=== PATIENT | female | born 1985 | race Caucasian/White ===

== ENCOUNTER 2020-09-20 19:29 | Emergency (ER) | payer BC ==
[2020-09-20 19:35] VITALS: RESP 18; TEMP 98.3
[2020-09-20] MEDS ORDERED: MORPHINE SULFATE 4 MG/ML SYRINGE IVP STA (20:05)
[2020-09-20] MEDS ORDERED: ONDANSETRON 4 MG/2 ML VIAL IVP STA (20:14)
[2020-09-20 20:20] LABS: Basophils % (A) 0 %; Eosinophils # (A) 0.4 k/uL (0-0.7); Eosinophils % (A) 2 %; HCT 37.8 % (34.0-46.0); HGB 13.1 gm/dL (11.4-16.0); Hyperchromasia Slight; Lymphocytes # (A) 1.2 k/uL (1.0-4.8); Lymphocytes % (A) 7 %; MCH 31.6 pg (25.0-35.0); MCHC 34.8 g/dL (31.0-37.0); MCV 90.9 fL (80.0-100.0); Mean Platelet Volume 6.9; Monocytes # (A) 0.4 k/uL (0-1.0); Monocytes % (A) 2 %; Neutrophils # (A) 15.4 k/uL (1.3-7.7); Neutrophils % (A) 88 %; Platelet Count 338 k/uL (150-450); RBC 4.16 m/uL (3.80-5.40); RDW 14.4 % (11.5-15.5); WBC 17.5 k/uL (3.8-10.6)
[2020-09-20 20:23] LABS: Appearance,Urine Cloudy (Clear); Bacteria,Urine Occasional /hpf; Bilirubin,Urine Negative (Negative); Blood,Urine Large (Negative); Color,Urine Yellow; Glucose,Urine (UA) Negative (Negative); Hyaline Casts,Urine 3 /lpf (0-2); Ketones,Urine Trace (Negative); Leukocyte Esterase,Urine Small (Negative); Mucus,Urine Occasional /hpf; Nitrite,Urine Negative (Negative); PH, Urine 5.5 (5.0-8.0); Protein,Urine Trace (Negative); RBC,Urine 2 /hpf (0-5); Specific Gravity,Urine 1.031 (1.001-1.035); Squamous Epithelial Cell,Urine 7 /hpf (0-4); Urobilinogen,Urine <2.0 mg/dL (<2.0); WBC,Urine 5 /hpf (0-5)
[2020-09-20 20:28] LABS: ALT 29 U/L (4-34); AST 28 U/L (14-36); African American GFR (CKD) >90 (>60 ml/min/1.73 sqM); Albumin 3.9 g/dL (3.5-5.0); Alkaline Phosphatase 56 U/L (38-126); Anion Gap 9 mmol/L; Blood Urea Nitrogen 10 mg/dL (7-17); Calcium 9.7 mg/dL (8.4-10.2); Carbon Dioxide 20 mmol/L (22-30); Chloride 104 mmol/L (98-107); Glucose 111 mg/dL (74-99); Non-African American GFR(CKD) >90 (>60 ml/min/1.73 sqM); Sodium 133 mmol/L (137-145); Total Bilirubin 0.6 mg/dL (0.2-1.3); Total Protein 6.7 g/dL (6.3-8.2)
[2020-09-20] MEDS ORDERED: fentaNYL (PF) 50 MCG/ML 2 ML AMP IVP STA ×2 (20:34→21:17)
[2020-09-20 20:36] LABS: INR 0.9 (<1.2); Partial Thromboplastin Time 20.5 sec (22.0-30.0); Prothrombin Time 9.5 sec (9.0-12.0)
[2020-09-20] MEDS ORDERED: SODIUM CHLORIDE 0.9% 1,000 ML IV ONE (20:50)
[2020-09-20] MEDS ORDERED: cefTRIAXone IN SWFI 1,000 MG/10 ML SYRINGE IVP STA (20:50)
--- NOTE | 2020-09-20 21:27 | ED ---
Female Urogenital HPI - General Chief complaint: Vaginal Bleeding Stated complaint: vag bleeding/abd pain (16 weeks prg) Time Seen by Provider: 09/20/20 19:36 Source: patient Mode of arrival: ambulatory Limitations: no limitations - History of Present Illness Initial comments: Patient is a 35-year-old female who is approximately 16 weeks who presents emergency Department with reported vaginal bleeding and cramping. Patient does follow with Dr. Lui. Reports that she just found out she is approximately 1.5 weeks ago. He did have a informal ultrasound in Dr. Lui's office. States that she does have a follow-up appointment on Thursday with him. At 11 AM this morning the patient started having some mild cramping and mild bleeding. Reports that it was brown in color. The cramping has remained constant, every 3 minutes approximately over the course of the day however appeared to get more intense. States that her bleeding remained minimal however due to the increasing pain she decided to come into the emergency room for evaluation. Denies any abnormal vaginal discharge. No fevers or chills. Denies any changes in her urination to include dysuria, hematuria or difficulty voiding. Denies any changes in her bowel movements. No lightheadedness or dizziness. No other alleviating, precipitating or modifying factors - Related Data Previous Rx's Medication Instructions Recorded Albuterol Inhaler (Mhu) [Ventolin 1 - 2 puff INHALATION Q6HR PRN #1 07/27/14 Hfa Inhaler (Mhu)] inhaler predniSONE 50 mg PO DAILY #5 tab 07/27/14 Cephalexin [Keflex] 500 mg PO Q12HR 1 Days #14 cap 09/20/20 Allergies Allergy/AdvReac Type Severity Reaction Status Date / Time Sulfa (Sulfonamide Allergy Itching Verified 09/20/20 19:35 Antibiotics) Review of Systems ROS Statement: Those systems with pertinent positive or pertinent negative responses have been documented in the HPI. ROS Other: All systems not noted in ROS Statement are negative. Past Medical History Past Medical History: No Reported History History of Any Multi-Drug Resistant Organisms: None Reported Past Surgical History: No Surgical Hx Reported Past Psychological History: No Psychological Hx Reported Smoking Status: Never smoker Past Alcohol Use History: None Reported Past Drug Use History: None Reported General Exam Limitations: no limitations Course Vital Signs 09/20/20 09/20/2009/20/21 19:30 21:47 21:50 Temperature 98.3 F Pulse Rate 85 94 Respiratory 18 18 Rate Blood Pressure 118/82 130/75 121/67 O2 Sat by Pulse 98 95 96 Oximetry 09/20/20 09/20/20 22:00 23:13 Temperature Pulse Rate 80 85 Respiratory 18 18 Rate Blood Pressure 121/67 126/74 O2 Sat by Pulse 99 98 Oximetry Medical Decision Making - Medical Decision Making Upon arrival patient was placed into room 26. A thorough history and physical exam is performed. IV is established. Patient does appear to have regular contraction-like pain every 3 minutes. Because of this we did give her 4 mg of morphine for pain control and a bedside ultrasound is performed by myself. Does demonstrates movement with a heart rate of approximately 178. I am able to perform a speculum exam which does demonstrate passage of mucoid material through an open cervix. Patient does not have any improvement in pain control with the morphine and therefore she is given a dose of fentanyl. Formal ultrasound is able to be completed. ultrasound is returned and demonstrates that the patient is approximately 20 weeks with a single live intrauterine . heart rate is elevated at 190. White blood cell count of 17.5. Urinalysis does demonstrate occasional bacteria with small leukocyte esterase. Patient was given a dose of antibiotics. Blood type is A-. I did repeat a bedside ultrasound which does demonstrate decreased movement with the fetus appearing to lie very low in the uterus. I did call discuss the case with Dr. Otero at [phone] notifying her that the patient does appear to be an inevitable . She agrees to admit the patient for pain control and to help facilitate delivery. I do attempt to put orders in on the patient remained call to the patient's room. Patient felt the urge to push and therefore went to the restroom. I do find the patient sitting on the toilet with the fetus in the bowl. Umbilical cord is attached and placenta is not delivered. Cord is clamped and cut. Patient was placed into the bed and placenta was delivered 10 minutes later. Speculum exam was performed with extraction of some clots. Bleeding is minimal and approximately 20 mL of bright red blood. Patient has immediate improvement in her pain. I did speak with Dr. Otero again at [phone] to inform her in the change of the patients status. She recommended that the patient remain on antibiotics. If she does have improvement in her pain and vital he appears to be stable that she can be discharged home. Patient does request to go home and states that she does not want to be hospitalized. She is watched for an additional hour. She has no increase in the amount of bleeding. Vitals remained stable. Patient is able to get up and ambulate without difficulty. Specimen is sent to pathology. She is to call Dr. Lui's office in the morning to notify them of her visit to the emergency department. She does have a follow-up appointment with him on Thursday. The patient has any new or worsening symptoms she should return to the emergency room. Patient agreed to this. Given written and verbal discharge instructions and discharged home in the care of a family member - Lab Data Result diagrams: 09/20/20 20:07 09/20/20 20:07 Lab Results 09/20/20 09/20/20 09/20/20 Range/Units 20:00 20:07 20:07 WBC 17.5 H (3.8-10.6) k/uL RBC 4.16 (3.80-5.40) m/uL Hgb 13.1 (11.4-16.0) gm/dL Hct 37.8 (34.0-46.0) % MCV 90.9 (80.0-100.0) fL MCH 31.6 (25.0-35.0) pg MCHC 34.8 (31.0-37.0) g/dL RDW 14.4 (11.5-15.5) % Plt Count 338 (150-450) k/uL MPV 6.9 Neutrophils % 88 % Lymphocytes % 7 % Monocytes % 2 % Eosinophils % 2 % Basophils % 0 % Neutrophils # 15.4 H (1.3-7.7) k/uL Lymphocytes # 1.2 (1.0-4.8) k/uL Monocytes # 0.4 (0-1.0) k/uL Eosinophils # 0.4 (0-0.7) k/uL Basophils # 0.0 (0-0.2) k/uL Hyperchromasia Slight PT 9.5 (9.0-12.0) sec INR 0.9 (<1.2) APTT 20.5 L (22.0-30.0) sec Sodium (137-145) mmol/L Potassium (3.5-5.1) mmol/L Chloride (98-107) mmol/L Carbon Dioxide (22-30) mmol/L Anion Gap mmol/L BUN (7-17) mg/dL Creatinine (0.52-1.04) mg/dL Est GFR (CKD-EPI)AfAm (>60 ml/min/1.73 sqM) Est GFR (CKD-EPI)NonAf (>60 ml/min/1.73 sqM) Glucose (74-99) mg/dL Calcium (8.4-10.2) mg/dL Total Bilirubin (0.2-1.3) mg/dL AST (14-36) U/L ALT (4-34) U/L Alkaline Phosphatase (38-126) U/L Total Protein (6.3-8.2) g/dL Albumin (3.5-5.0) g/dL Urine Color Urine Appearance (Clear) Urine pH (5.0-8.0) Ur Specific Bitely (1.001-1.035) Urine Protein (Negative) Urine Glucose (UA) (Negative) Urine Ketones (Negative) Urine Blood (Negative) Urine Nitrite (Negative) Urine Bilirubin (Negative) Urine Urobilinogen (<2.0) mg/dL Ur Leukocyte Esterase (Negative) Urine RBC (0-5) /hpf Urine WBC (0-5) /hpf Ur Squamous Epith Cells (0-4) /hpf Urine Bacteria (None) /hpf Hyaline Casts (0-2) /lpf Urine Mucus (None) /hpf Blood Type A Positive Blood Type Recheck No Previous Record Bld Type Recheck Status [facility] ONLY 09/20/20 09/20/20 Range/Units 20:07 20:07 WBC (3.8-10.6) k/uL RBC (3.80-5.40) m/uL Hgb (11.4-16.0) gm/dL Hct (34.0-46.0) % MCV (80.0-100.0) fL MCH (25.0-35.0) pg MCHC (31.0-37.0) g/dL RDW (11.5-15.5) % Plt Count (150-450) k/uL MPV Neutrophils % % Lymphocytes % % Monocytes % % Eosinophils % % Basophils % % Neutrophils # (1.3-7.7) k/uL Lymphocytes # (1.0-4.8) k/uL Monocytes # (0-1.0) k/uL Eosinophils # (0-0.7) k/uL Basophils # (0-0.2) k/uL Hyperchromasia PT (9.0-12.0) sec INR (<1.2) APTT (22.0-30.0) sec Sodium 133 L (137-145) mmol/L Potassium 4.0 (3.5-5.1) mmol/L Chloride 104 (98-107) mmol/L Carbon Dioxide 20 L (22-30) mmol/L Anion Gap 9 mmol/L BUN 10 (7-17) mg/dL Creatinine 0.55 (0.52-1.04) mg/dL Est GFR (CKD-EPI)AfAm >90 (>60 ml/min/1.73 sqM) Est GFR (CKD-EPI)NonAf >90 (>60 ml/min/1.73 sqM) Glucose 111 H (74-99) mg/dL Calcium 9.7 (8.4-10.2) mg/dL Total Bilirubin 0.6 (0.2-1.3) mg/dL AST 28 (14-36) U/L ALT 29 (4-34) U/L Alkaline Phosphatase 56 (38-126) U/L Total Protein 6.7 (6.3-8.2) g/dL Albumin 3.9 (3.5-5.0) g/dL Urine Color Yellow Urine Appearance Cloudy H (Clear) Urine pH 5.5 (5.0-8.0) Ur Specific Bitely 1.031 (1.001-1.035) Urine Protein Trace H (Negative) Urine Glucose (UA) Negative (Negative) Urine Ketones Trace H (Negative) Urine Blood Large H (Negative) Urine Nitrite Negative (Negative) Urine Bilirubin Negative (Negative) Urine Urobilinogen <2.0 (<2.0) mg/dL Ur Leukocyte Esterase Small H (Negative) Urine RBC 2 (0-5) /hpf Urine WBC 5 (0-5) /hpf Ur Squamous Epith Cells 7 H (0-4) /hpf Urine Bacteria Occasional H (None) /hpf Hyaline Casts 3 H (0-2) /lpf Urine Mucus Occasional H (None) /hpf Blood Type Blood Type Recheck Bld Type Recheck Status Disposition Clinical Impression: Complete Disposition: HOME SELF-CARE Condition: Stable Instructions (If sedation given, give patient instructions): Miscarriage (ED) Additional Instructions: Please call Dr. Lui's office tomorrow to notify him that you went to the emergency department. Follow-up at your scheduled appointment on Thursday. Return to the emergency room for any new or worsening symptoms Prescriptions: Cephalexin [Keflex] 500 mg PO Q12HR 1 Days #14 cap Is patient prescribed a controlled substance at d/c from ED?: No Referrals: Asad Millard MD [Primary Care Provider] - 1-2 days Johny Lui MD [STAFF PHYSICIAN] - 1-2 days Time of Disposition: 22:54 Decision to Admit Reason: Admit from EC Decision Date: 09/20/20 Decision Time: 21:27
--- NOTE | 2020-09-20 21:52 | US ---
EXAMINATION TYPE: US OB >= 14 wk fetus DATE OF EXAM: 09/20/2020 COMPARISON: None CLINICAL HISTORY: painSevere pain and bleeding. LMP unknown. Patient states she believes she is 16 we eks . . TECHNIQUE: Transabdominal (TA) GESTATIONAL AGE / DATING Physician Established: Not yet established. Dates by LMP: Unknown. Dates by First Scan: This is first scan. Dates by Current Scan: (20 weeks/ 0 days) EDC: 02/07/2021 SURVEY IUP: Single PLACENTA: Anterior PREVIA: No Previa MIRELLA: 12.39 cm Normal CERVICAL LENGTH (transabdominal: norm > 3.0cm): Bladder not well distended. Limited visibility. Cervi x measured at 2.93 cm, but not clearly visualized. CERVICAL LENGTH (transvaginal: norm> 2.5cm): Transvaginal exam not performed per Dr. Brooke. BIOMETRY PRESENTATION: Vertex LIE: Longitudinal BPD: 4.65 cm 20 weeks / 0 days HC: 17.87 cm 20 weeks / 2 days AC: 15.22 cm 20 weeks / 3 days FL: 3.20 cm 20 weeks / 0 days. Limited measurement. Fetus appears to be positioned low. Bladder not fully dis tended. ESTIMATED WEIGHT IN GRAMS: 339.73 grams ESTIMATED WEIGHT IN LBS/OZ: 0 lbs. 12 oz. WEIGHT PERCENTAGE BASED ON ESTABLISHED DATES: Unknown HC/AC: 1.17 FL/AC: 21.03 HEART RATE: 190 bpm RHYTHM: Heart rate measures high. IMPRESSION: Single live intrauterine with estimated gestational age of 20 weeks. heart rate of 190 bpm, elevated and nonspecific.
[2020-09-20 23:14] VITALS: BP 126/74; PULSE 85
== END 2020-09-20 23:21 | disposition home or self-care (01) ==
LOC: EC 19:29
DX: O03.9 Complete or unspecified spontaneous abortion without complication (principal); Z88.2 Allergy status to sulfonamides
CPT/HCPCS: 36415; 86900; 86901; 80053; 85025; 85610; 85730; 81001; 76805; 99284; 96374; 96375 ×3; 96376; 96361; J2270; J2405; J0696; J3010

== ENCOUNTER 2022-02-11 10:02 | Outpatient (CLI) | payer BC ==
[2022-02-11 15:09] VITALS: BP 143/81; PULSE 133; RESP 20; TEMP 98
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
== END 2022-02-11 12:05 | disposition home or self-care (01) ==
LOC: FBPOP 10:02
PROVIDERS: ATTEND Obstetrics & Gynecology
DX: O9A.212 Injury, poisoning and certain other consequences of external causes complicating pregnancy, second trimester (principal); S80.212A Abrasion, left knee, initial encounter; Z3A.27 27 weeks gestation of pregnancy; Z88.2 Allergy status to sulfonamides; Z04.3 Encounter for examination and observation following other accident
CPT/HCPCS: 99213

== ENCOUNTER 2022-04-28 13:56 | Outpatient (CLI) | payer BC ==
[2022-04-28 14:23] VITALS: BP 129/80; PULSE 125; RESP 16; TEMP 97.8
[2022-04-28 14:58] LABS: Creatinine,Urine Random 126.9 mg/dL; Protein/Creatinine Ratio,Urine 0.11
[2022-04-28 15:06] LABS: Basophils % (A) 0 %; Eosinophils # (A) 0.1 k/uL (0-0.7); Eosinophils % (A) 1 %; HCT 34.6 % (34.0-46.0); HGB 11.9 gm/dL (11.4-16.0); Lymphocytes # (A) 1.4 k/uL (1.0-4.8); Lymphocytes % (A) 11 %; MCH 29.7 pg (25.0-35.0); MCHC 34.4 g/dL (31.0-37.0); MCV 86.4 fL (80.0-100.0); Mean Platelet Volume 8.1; Monocytes # (A) 0.4 k/uL (0-1.0); Monocytes % (A) 4 %; Neutrophils # (A) 9.9 k/uL (1.3-7.7); Neutrophils % (A) 82 %; Platelet Count 326 k/uL (150-450); Poikilocytosis Slight; RBC 4.01 m/uL (3.80-5.40); RDW 15.8 % (11.5-15.5); WBC 12.1 k/uL (3.8-10.6)
[2022-04-28 15:15] LABS: ALT 15 U/L (4-34); AST 21 U/L (14-36); African American GFR (CKD) >90 (>60 ml/min/1.73 sqM); Blood Urea Nitrogen 11 mg/dL (7-17); LDH 367 U/L (313-618); Non-African American GFR(CKD) >90 (>60 ml/min/1.73 sqM); Uric Acid 3.4 mg/dL (3.7-7.4)
--- NOTE | 2022-04-30 06:52 | P.MSEPDOC ---
Presenting Problems - Arrival Data Date of Arrival on Unit: 04/28/22 Time of Arrival on Unit: 13:56 Mode of Transport: Ambulatory - Complaint OB-Reason for Admission/Chief Complaint: PIH Medical History - Information : 2 Para: 0 Term: 0 : 0 Abortions: Spontaneous or Elective: 1 Number of Living Children: 0 - Gestational Age Gestational Age by CHESTER (wks/days): 38 Weeks and 2 Days Review of Systems - Review of Systems Constitutional: No problems Breast: No problems ENT: No problems Cardiovascular: No problems Respiratory: No problems Gastrointestinal: No problems Genitourinary: No problems Musculoskeletal: No problems Neurological: No problems Skin: No problems Vital Signs - Temperature Temperature: 97.8 F Temperature Source: Temporal Artery Scan - Pulse Right Sitting Pulse Rate: 125 Pulse Assessment Method: Pulse Oximetry - Respirations Respiratory Rate: 16 Oxygen Delivery Method: Room Air O2 Sat by Pulse Oximetry: 96 - Blood Pressure Right Arm Blood Pressure: 129/80 Blood Pressure Mean: 96 Blood Pressure Source: Automatic Cuff Medical Screen Scoring - Assessment - Baby A Baseline FHR: 135 Heart Rate - NICHD Category: Category I (Normal) NST: Reactive Physician Notification - Physician Notified Physician Notified Date: 04/28/22 Physician Notified Time: 15:11 Physician: Johny Lui New Order Received: Yes (d/c home) Maternal Triage Index - Non-Urgent/Priority 4 Non-Urgent Priority 4: Yes Criteria Met for Priority 4: bps wnl, reactive nst, all labs wnl Disposition - Disposition OB Disposition: Discharge to home Discharge Date: 04/28/22 Discharge Time: 15:22 I agree with the RN Medical Screening Exam: Yes Case reviewed; plan agreed upon as documented in EMR&OBIX.: Yes Diagnosis: GESTATIONAL HTN W/O SIGNIFICANT PROTEINURIA, THIRD TRIMESTER
== END 2022-04-28 15:22 | disposition home or self-care (01) ==
LOC: FBPOP 13:56
PROVIDERS: ATTEND Obstetrics & Gynecology
DX: O13.3 Gestational [pregnancy-induced] hypertension without significant proteinuria, third trimester (principal); Z3A.38 38 weeks gestation of pregnancy
CPT/HCPCS: 59025; 82565; 82570; 83615; 84156; 84450; 84460; 84520; 84550; 85025

== ENCOUNTER 2022-05-03 10:05 | Inpatient (IN) | payer BC ==
[2022-05-03] MEDS ORDERED: METHYLERGONOVINE 0.2 MG/ML 1 ML AMP IM PRN (11:32)
[2022-05-03] MEDS ORDERED: OXYTOCIN 10 UNIT/ML 1 ML VIAL IM PRN (11:32)
[2022-05-03] MEDS ORDERED: LIDOCAINE 0.5% (PF) 5 MG/ML (50 ML SDV) SQ PRN (11:32)
[2022-05-03] MEDS ORDERED: TERBUTALINE 1 MG/ML VIAL SQ PRN (11:32)
[2022-05-03] MEDS ORDERED: CARBOPROST TROMETHAMINE 250 MCG/ML 1 ML AMP IM PRN (11:32)
[2022-05-03] MEDS ORDERED: OXYTOCIN 30 UNITS/500 ML NS 30 UNIT in SALINE 1 500ML.BAG IV SCH (11:45)
[2022-05-03 12:36] LABS: Basophils # (A) 0.1 k/uL (0-0.2); Basophils % (A) 1 %; Eosinophils # (A) 0.1 k/uL (0-0.7); Eosinophils % (A) 1 %; HCT 42.2 % (34.0-46.0); HGB 12.8 gm/dL (11.4-16.0); Hypochromasia Marked; Lymphocytes # (A) 1.4 k/uL (1.0-4.8); Lymphocytes % (A) 10 %; MCH 28.8 pg (25.0-35.0); MCHC 30.4 g/dL (31.0-37.0); Mean Platelet Volume 8.1; Monocytes # (A) 0.4 k/uL (0-1.0); Monocytes % (A) 3 %; Neutrophils # (A) 11.9 k/uL (1.3-7.7); Neutrophils % (A) 85 %; Platelet Count 308 k/uL (150-450); Poikilocytosis Slight; RBC 4.45 m/uL (3.80-5.40); RDW 15.3 % (11.5-15.5)
[2022-05-03 12:43] LABS: MCV 94.9 fL (80.0-100.0)
[2022-05-03] MEDS: LACTATED RINGERS 1,000 ML IV SCH ×3 (13:02→18:15)
[2022-05-03] MEDS ORDERED: ROPIVACAINE 5 MG/ML 20 ML AMPULE ONE (16:01)
[2022-05-03] MEDS ORDERED: SODIUM CHLORIDE 0.9% 100 ML BAG ONE (16:01)
[2022-05-03] MEDS ORDERED: fentaNYL (PF) 50 MCG/ML 5 ML AMP ONE (16:01)
--- NOTE | 2022-05-03 17:31 | P.HPOB ---
History of Present Illness H&P Date: 05/03/22 Chief Complaint: labor, SROM 37 year old presents at 39 weeks with spontaneous rupture of membranes at 7 am and stefanie every 2-4 minutes. Her cervix is 2/80/-2. heart tones 135 with moderate variability and reactive. Review of Systems All systems: negative Constitutional: Denies chills, Denies fever Eyes: denies blurred vision, denies pain Ears, nose, mouth and throat: Denies headache, Denies sore throat Cardiovascular: Denies chest pain, Denies shortness of breath Respiratory: Denies cough Gastrointestinal: Denies abdominal pain, Denies diarrhea, Denies nausea, Denies vomiting Genitourinary: Denies dysuria, Denies hematuria Musculoskeletal: Denies myalgias Integumentary: Denies pruritus, Denies rash Neurological: Denies numbness, Denies weakness Psychiatric: Denies anxiety, Denies depression Endocrine: Denies fatigue, Denies weight change Past Medical History Past Medical History: No Reported History Additional Past Medical History / Comment(s): labs: A+, abs neg, Rub Imm, RPR Nr, Hep B neg, HIV NR, GBS neg. normal 1hr GTT. History of Any Multi-Drug Resistant Organisms: None Reported Past Surgical History: No Surgical Hx Reported Past Anesthesia/Blood Transfusion Reactions: No Reported Reaction Past Psychological History: No Psychological Hx Reported Smoking Status: Never smoker Past Alcohol Use History: None Reported Past Drug Use History: None Reported - Past Family History Mother Family Medical History: No Reported History Medications and Allergies Home Medications Medication Instructions Recorded Confirmed Type Aspirin 81 mg PO DAILY 02/11/22 05/03/22 History Vit No.179/Iron/Folic 1 each PO DAILY 02/11/22 05/03/22 History [ Tablet] Allergies Allergy/AdvReac Type Severity Reaction Status Date / Time Sulfa (Sulfonamide Allergy Itching Verified 05/03/22 10:13 Antibiotics) Exam Osteopathic Statement: *. No significant issues noted on an osteopathic structural exam other than those noted in the History and Physical/Consult. Vital Signs Temp Pulse Resp BP Pulse Ox 05/03/22 11:32 98.1 F 120 H 16 124/68 99 Intake and Output 05/03/22 05/03/22 05/03/22 06:59 14:59 22:59 Other: # Voids 1 Weight 83.007 kg Heart: Regular rate and rhythm Lungs: Clear to auscultation bilaterally Abdomen: Soft, nontender Extremities: Negative Homans sign Results Result Diagrams: 05/03/22 11:30 Abnormal Lab Results - Last 24 Hours (Table) 05/03/22 Range/Units 11:30 WBC 14.0 H (3.8-10.6) k/uL MCHC 30.4 L (31.0-37.0) g/dL Neutrophils # 11.9 H (1.3-7.7) k/uL Assessment and Plan (1) Spontaneous rupture of membranes Current Visit: Yes Status: Acute Code(s): IUE0013 - SNOMED Code(s): 639850617 (2) Normal labor Current Visit: Yes Status: Acute Code(s): O80 - ENCOUNTER FOR FULL-TERM UNCOMPLICATED DELIVERY; Z37.9 - OUTCOME OF DELIVERY, UNSPECIFIED SNOMED Code(s): 91825310 Plan: 1. Admit to family place 2. Expectant management with Pitocin augmentation if necessary 3. Anticipate normal vaginal delivery
[2022-05-04] MEDS ORDERED: CITRIC ACID-SODIUM CITRATE 15 ML CUP PO ONE (01:19)
[2022-05-04] MEDS ORDERED: ONDANSETRON 4 MG/2 ML VIAL ONE (01:42)
[2022-05-04] MEDS ORDERED: OXYTOCIN 30 UNITS/500 ML NS BAG IV ONE (01:42)
[2022-05-04] MEDS ORDERED: SODIUM CHLORIDE 0.9% 100 ML BAG ONE (01:42)
[2022-05-04] MEDS ORDERED: ceFAZolin 1,000 MG VIAL ONE (01:42)
[2022-05-04] MEDS ORDERED: MORPHINE SULFATE (PF) 0.3 MG/0.3 ML SYR ONE (01:42)
--- NOTE | 2022-05-04 02:32 | P.OP ---
Date of Procedure: 05/04/22 Preoperative Diagnosis: 1. at 39 weeks 2. AMA 3. arrest of descent 4. category 2 heart tones Postoperative Diagnosis: 1. at 39 weeks 2. AMA 3. arrest of descent 4. category 2 heart tones 5. nuchal cord x2 Procedure(s) Performed: Primary low transverse Anesthesia: epidural Surgeon: Alejandrina Mayorga Computer Support Technician #1: Jessica Razo Estimated Blood Loss (ml): 730 IV fluids (ml): 600 Urine output (ml): 100 Pathology: none sent Condition: stable Disposition: floor Indications for Procedure: 37-year-old presented at 39 weeks with spontaneous rupture membranes and stefanie every 4 minutes. Her cervix was 2 cm dilated, 80% effaced, -2 station. heart tones are 135 with moderate variability and reactive. Her water broke at 7:00 in the morning on 05/03/2022. She presented soon thereafter. After her IV was started her contractions spaced out and she did not make any more cervical change in the next few hours. So Pitocin augmentation was started. When she was stefanie every few minutes and making some cervical change and very uncomfortable she did get an epidural. Her cervix became completely dilated and she labored down and pushed for over 3 hours and made little progress. She started having less of the maternal effort and the baby started to have some variable decelerations lasting longer with each contraction though it did return to baseline. Oxygen was administered and so was IV fluids. Position changes were also done. This did not improve the heart tones. Patient centered Radha was performed. The decision was made to perform surgery section. Informed consent was obtained and section was called. Operative Findings: Viable male, Apgars 8, 9, weight 7 lbs. 7 oz. Nuchal cord 2. Normal uterus, tubes, ovaries. Description of Procedure: Patient was taken to the operating room where spinal anesthesia was found be adequate. She was prepped and draped in normal sterile fashion in dorsal supine position with a leftward tilt. Pfannenstiel skin incision was made the scalpel and carried through to the underlying layer of fascia with the scalpel. Fascia was incised in midline and carried bilaterally with the Ortega scissors. The superior aspect of the fascial incision was grasped with Laura clamps elevated and the underlying rectus muscles dissected off with the Ortega's. Attention was then turned to inferior aspect of same incision which in a similar fashion was grasped tented up and the underlying rectus muscles dissected off with the Ortega's. The rectus muscles were the midline and the peritoneum was identified tented up and entered sharply with the scalpel. The incision was extended superiorly and inferiorly with good visualization of the bladder. The bladder blade was inserted and the vesicouterine peritoneum was incised the Metzenbaums then carried bilaterally and bladder flap created digitally. A low transverse incision was then made on the uterus with the scalpel. This was carried bilaterally and digital manner. 's head delivered atraumatically, nose and mouth bulb suctioned, cord clamped and cut, handed off to waiting nurses. Apgars 8,9, weight 7 lbs. 7 oz. Placenta delivered manually, intact with three-vessel cord. The uterus is exteriorized and cleared of all clots and debris. The uterine incision was closed with 0 Vicryl in a running locked fashion. Second layer of the same sutures used in imbricating fashion to obtain excellent hemostasis. Bladder flap was then reapproximated using 2-0 Vicryl in a running fashion. Both ovaries and tubes appeared normal. The uterus was placed back into the abdomen. The peritoneum was reapproximated using 2-0 Vicryl in a running fashion. The muscles were reapproximated using 2- 0 Vicryl in interrupted fashion. The fascia was reapproximated using 0 Vicryl in a running fashion. The subcutaneous tissues closed with 3-0 Vicryl running fashion. The skin was closed dm. Patient tolerated the procedure well, sponge and instrument counts were correct times 2 and she was taken to the recovery room in stable condition.
[2022-05-04] MEDS ORDERED: diphenhydrAMINE 50 MG/ML 1 ML VIAL IVP PRN ×2 (02:33)
[2022-05-04] MEDS ORDERED: ZOLPIDEM 5 MG TAB PO PRN (02:33)
[2022-05-04] MEDS ORDERED: diphenhydrAMINE 50 MG CAP PO PRN (02:33)
[2022-05-04] MEDS ORDERED: METOCLOPRAMIDE 5 MG/ML 2 ML VIAL IVP PRN (02:33)
[2022-05-04] MEDS ORDERED: diphenhydrAMINE 25 MG CAP PO PRN (02:33)
[2022-05-04] MEDS ORDERED: ONDANSETRON 4 MG/2 ML VIAL IVP PRN (02:33)
[2022-05-04] MEDS ORDERED: NALOXONE 0.4 MG/ML 1 ML VIAL IV PRN (02:33)
[2022-05-04] MEDS ORDERED: LANOLIN CREAM 5 GM TUBE TOPICAL PRN (02:33)
[2022-05-04] MEDS ORDERED: OXYTOCIN 30 UNITS/500 ML NS 30 UNIT in SALINE 1 500ML.BAG IV SCH (02:45)
[2022-05-04] MEDS: LACTATED RINGERS 1,000 ML IV SCH ×2 (03:38→21:05)
[2022-05-04] MEDS: SENNOSIDES-DOCUSATE SODIUM 1 EACH TAB PO SCH ×2 (08:00→21:55)
--- NOTE | 2022-05-04 08:51 | P.PN ---
Progress Note - Text Progress Note Date: 05/04/22 Patient doing well. Denies weakness or paresthesia. Denies headache. Mild pruritis. Pain 5/10. Epidural site c/d A/P POD#1 s/p w/ epidural duramorph. - doing well
[2022-05-04] MEDS: IBUPROFEN 600 MG TAB PO SCH ×3 (10:25→21:56)
[2022-05-04] MEDS: KETOROLAC 15 MG/ML 1 ML VIAL IVP SCH ×2 (10:26→18:59)
[2022-05-04] MEDS: ACETAMINOPHEN TAB 500 MG TAB PO SCH ×3 (12:57→21:56)
[2022-05-04] MEDS: SIMETHICONE 80 MG CHEWABLE PO PRN ×2 (12:59→18:57)
[2022-05-05] MEDS: IBUPROFEN 600 MG TAB PO SCH ×4 (01:04→21:34)
[2022-05-05] MEDS: KETOROLAC 15 MG/ML 1 ML VIAL IVP SCH (01:05)
[2022-05-05] MEDS: ACETAMINOPHEN TAB 500 MG TAB PO SCH ×4 (02:41→18:08)
--- NOTE | 2022-05-05 06:23 | P.PNOBGPC ---
Subjective - Subjective Patient reports: Reports appetite normal, Reports voiding normally, Reports pain well controlled, Reports ambulating normally : doing well Objective - Vital Signs Latest vital signs: Vital Signs Temp Pulse Resp BP Pulse Ox 05/05/22 00:00 97.9 F 89 16 99/66 96 05/04/22 20:00 98.0 F 114 H 18 108/65 96 05/04/22 16:00 98.6 F 102 H 20 107/66 96 05/04/22 12:00 98.5 F 104 H 20 135/85 05/04/22 08:00 98.5 F 99 20 113/68 96 Intake and Output 05/04/22 05/04/22 05/05/22 14:59 22:59 06:59 Intake Total 380 760 Output Total 600 550 Balance -220 210 Intake: Oral 380 760 Output: Urine 600 550 Uretheral (Ramírez) 600 Other: # Voids 1 1 - Exam Lungs: bilateral: normal Chest: Normal S1, Normal S2 Extremities: Present: normal Abdomen: Present: normal appearance, soft. Absent: distention, tenderness Incision: Present: normal, dry, intact Uterus: Present: normal, firm Assessment and Plan Assessment: Post operative day #1. Vital signs are stable and she is afebrile. Uterus is firm nontender and she is having normal lochia. CBC is pending at this time. Patient is tolerating regular diet, urinating, ambulating without difficulty. Plan today is to continue routine postoperative care, check CBC, and anticipate discharge tomorrow. (1) Delivery by section Current Visit: Yes Status: Acute Code(s): [id number] - SNOMED Code(s): 724074446
[2022-05-05] MEDS: SENNOSIDES-DOCUSATE SODIUM 1 EACH TAB PO SCH ×2 (07:37→21:33)
[2022-05-05 08:02] LABS: Anisocytosis Slight; Basophils % (A) 0 %; Eosinophils # (A) 0.3 k/uL (0-0.7); Eosinophils % (A) 2 %; HCT 26.3 % (34.0-46.0); Lymphocytes # (A) 1.2 k/uL (1.0-4.8); Lymphocytes % (A) 9 %; MCH 29.1 pg (25.0-35.0); MCHC 33.5 g/dL (31.0-37.0); Mean Platelet Volume 8.3; Monocytes # (A) 0.4 k/uL (0-1.0); Monocytes % (A) 3 %; Neutrophils # (A) 11.6 k/uL (1.3-7.7); Neutrophils % (A) 84 %; Platelet Count 241 k/uL (150-450); Poikilocytosis Slight; RBC 3.02 m/uL (3.80-5.40); RDW 16.1 % (11.5-15.5); WBC 13.8 k/uL (3.8-10.6)
[2022-05-05 08:10] LABS: HGB 8.8 gm/dL (11.4-16.0)
[2022-05-06] MEDS: ACETAMINOPHEN TAB 500 MG TAB PO SCH ×3 (00:02→12:35)
[2022-05-06] MEDS: IBUPROFEN 600 MG TAB PO SCH ×2 (06:30→12:34)
--- NOTE | 2022-05-06 06:45 | P.PNOBGPC ---
Subjective - Subjective Patient reports: Reports appetite normal, Reports voiding normally, Reports pain well controlled, Reports ambulating normally : doing well Objective - Vital Signs Latest vital signs: Vital Signs Temp Pulse Resp BP Pulse Ox 05/05/22 23:18 98 F 84 18 117/75 99 05/05/22 16:00 98.2 F 99 16 107/62 05/05/22 07:56 97.7 F 90 16 100/68 Intake and Output 05/05/22 05/05/22 05/06/22 14:59 22:59 06:59 Other: # Voids 1 1 - Exam Lungs: bilateral: normal Chest: Normal S1, Normal S2 Extremities: Present: normal Abdomen: Present: normal appearance, soft. Absent: distention, tenderness Incision: Present: normal, dry, intact Uterus: Present: normal, firm - Labs Labs: Abnormal Lab Results - Last 24 Hours (Table) 05/05/22 Range/Units 06:55 WBC 13.8 H (3.8-10.6) k/uL RBC 3.02 L (3.80-5.40) m/uL Hgb 8.8 L D (11.4-16.0) gm/dL Hct 26.3 L (34.0-46.0) % RDW 16.1 H (11.5-15.5) % Neutrophils # 11.6 H (1.3-7.7) k/uL Assessment and Plan Assessment: Postoperative day #2. Patient feeling well wishes to go home. Vital signs are stable she is afebrile. Uterus is firm nontender and her incision is intact and dry. Hemoglobin yesterday was 8.8 which is down from 12.8 on admission but she is feeling well. I am going to start her on some iron therapy. Plan today is to continue routine postoperative care. Discharge home later today as long as the baby can go. (1) Delivery by section Current Visit: Yes Status: Acute Code(s): UNZ4355 - SNOMED Code(s): 741522897
--- NOTE | 2022-05-06 06:58 | P.DS ---
Providers Date of admission: 05/03/22 10:56 Expected date of discharge: 05/06/22 Attending physician: Johny Lui Primary care physician: Stated None - Discharge Diagnosis(es) (1) Delivery by section Current Visit: Yes Status: Acute Hospital Course: Please see dictated H&P and operative note on this patient's admission. In brief summary this is a pleasant 37-year-old 2 para 1 female estimated gestational age 39 and one sevenths weeks who presents to labor and delivery with complaints of leaking of fluid and contractions. Patient subsequent goes on to have a primary low transverse section for viable male infant. Please see dictated operative note per Dr. Mayorga. Postoperatively the patient does well and on postoperative 2 is felt to be stable for discharge home. She did have some mild anemia hours asymptomatic. Procedures: Primary low transverse section Patient Condition at Discharge: Good Plan - Discharge Summary New Discharge Prescriptions: New Ferrous Sulfate [Iron (65 MG Elemental)] 325 mg PO BID-W/MEALS #60 tab Ibuprofen [Motrin] 600 mg PO Q6H #40 tab oxyCODONE HCL [OxyIR] 5 mg PO Q4HR PRN #18 tab PRN Reason: Pain No Action Aspirin 81 mg PO DAILY Vit No.179/Iron/Folic [ Tablet] 1 each PO DAILY Discharge Medication List Aspirin 81 mg PO DAILY 02/11/22 [History] Vit No.179/Iron/Folic [ Tablet] 1 each PO DAILY 02/11/22 [History] Ferrous Sulfate [Iron (65 MG Elemental)] 325 mg PO BID-W/MEALS #60 tab 05/06/22 [Rx] Ibuprofen [Motrin] 600 mg PO Q6H #40 tab 05/06/22 [Rx] oxyCODONE HCL [OxyIR] 5 mg PO Q4HR PRN #18 tab 05/06/22 [Rx] Follow up Appointment(s)/Referral(s): Johny Lui MD [STAFF PHYSICIAN] - 05/13/22 8:30 am (Please see me for a visit on 06/17/22 @9:30) Patient Instructions/Handouts: (DC), Iron Deficiency Anemia (GEN) Activity/Diet/Wound Care/Special Instructions: No heavy lifting or strenuous activity for 6 weeks. No intercourse or anything per vagina for 6 weeks. Please call if any fever, chills, excessive vaginal bleeding, and/or abdominal pain. Discharge Disposition: HOME SELF-CARE
[2022-05-06] MEDS ORDERED: FERROUS SULFATE 325 MG TAB PO SCH (07:30)
[2022-05-06 08:09] VITALS: BP 113/72; PULSE 78; RESP 20; TEMP 97.7
[2022-05-06] MEDS: SENNOSIDES-DOCUSATE SODIUM 1 EACH TAB PO SCH (08:23)
== END 2022-05-06 15:30 | disposition home or self-care (01) | DRG 788 ==
LOC: FBPOP 10:05 → 4FBP 10:56
PROVIDERS: ADMIT Obstetrics & Gynecology; ATTEND Obstetrics & Gynecology
PROC: 10D00Z1 Extraction of Products of Conception, Low, Open Approach (ICD-10-PCS; principal; 2022-05-04 01:40)
DX: O76 Abnormality in fetal heart rate and rhythm complicating labor and delivery (principal); O62.1 Secondary uterine inertia; O69.81X0 Labor and delivery complicated by cord around neck, without compression, not applicable or unspecified; L29.9 Pruritus, unspecified; Z3A.39 39 weeks gestation of pregnancy; Z79.82 Long term (current) use of aspirin
CPT/HCPCS: 59025; 84112; 85025; 86850; 86900; 86901; 99213

== ENCOUNTER 2023-07-12 08:40 | Outpatient (CLI) | payer BC ==
[2023-07-12 10:37] VITALS: BP 128/74; PULSE 111; RESP 17; TEMP 97.4
--- NOTE | 2023-08-17 16:19 | P.MSEPDOC ---
Presenting Problems - Arrival Data Date of Arrival on Unit: 07/12/23 Time of Arrival on Unit: 08:40 Mode of Transport: Ambulatory - Complaint OB-Reason for Admission/Chief Complaint: Decreased Movement Medical History - Information : 2 Para: 1 Term: 1 : 0 Abortions: Spontaneous or Elective: 0 Number of Living Children: 1 - Gestational Age Gestational Age by CHESTER (wks/days): 27 Weeks and 3 Days Review of Systems - Review of Systems Constitutional: No problems Breast: No problems ENT: No problems Cardiovascular: No problems Respiratory: No problems Gastrointestinal: No problems Genitourinary: No problems Musculoskeletal: No problems Neurological: No problems Skin: No problems Vital Signs - Temperature Temperature: 97.4 F Temperature Source: Temporal Artery Scan - Pulse Right Brachial Pulse Rate: 111 Pulse Assessment Method: Automatic Cuff - Respirations Respiratory Rate: 17 Oxygen Delivery Method: Room Air O2 Sat by Pulse Oximetry: 97 - Blood Pressure Right Arm Blood Pressure: 128/74 Blood Pressure Mean: 92 Blood Pressure Source: Automatic Cuff Medical Screen Scoring - Assessment - Baby A Baseline FHR: 150 Heart Rate - NICHD Category: Category I (Normal) NST: Reactive Physician Notification - Physician Notified Physician Notified Date: 07/12/23 Physician Notified Time: 09:06 Physician: Karina Leon New Order Received: Yes - Notification Comment Comment: Dr. Leon given report on pt. Pt c/o. VS readback. Cat 1 FHTs, no contractions. Orders recieved to d/c pt to home. Maternal Triage Index - Urgent/Priority 2 Urgent Priority 2: Yes Provider Notified: Karina Leon Provider Notified Time: 09:06 Criteria Met for Priority 2: Dr. Leon given report on pt. Pt c/o. VS readback. Cat 1 FHTs, no contractions. Orders recieved to d/c pt to home. Disposition - Disposition OB Disposition: Discharge to home Discharge Date: 07/12/23 Discharge Time: 09:15 I agree with the RN Medical Screening Exam: Yes Case reviewed; plan agreed upon as documented in EMR&OBIX.: Yes Diagnosis: DECREASED MOVEMENTS, THIRD TRIMESTER, FETUS 1
== END 2023-07-12 09:15 | disposition home or self-care (01) ==
LOC: FBPOP 08:40
PROVIDERS: ATTEND Obstetrics & Gynecology Obstetrics
DX: O36.8121 Decreased fetal movements, second trimester, fetus 1 (principal); Z3A.27 27 weeks gestation of pregnancy; Z88.2 Allergy status to sulfonamides
CPT/HCPCS: 99213

== ENCOUNTER 2023-08-05 09:47 | Emergency (ER) | payer BC ==
--- NOTE | 2023-08-05 10:08 | ED ---
URI HPI - General Chief Complaint: Upper Respiratory Infection Stated Complaint: YOSELYN Time Seen by Provider: 08/05/23 09:56 Source: patient, RN notes reviewed Mode of arrival: ambulatory Limitations: no limitations - History of Present Illness Initial Comments: 38-year-old female presents emergency Department with chief complaint of cough congestion. Patient states she's been sick for 4 days she did telehealth visit with her PCP. Patient is placed on prednisone, nasal spray. Patient states has not helped much. She has increased nasal congestion, mild cough. Patient denies any reports of fever no body aches. - Related Data Home Medications Medication Instructions Recorded Confirmed Aspirin 81 mg PO DAILY 02/11/22 07/12/23 Vit No.179/Iron/Folic 1 each PO DAILY 02/11/22 07/12/23 [ Tablet] Previous Rx's Medication Instructions Recorded Amoxic-Pot Clav 875-125Mg 1 tab PO Q12HR #20 tab 08/05/23 [Augmentin 875-125] Allergies Allergy/AdvReac Type Severity Reaction Status Date / Time Sulfa (Sulfonamide Allergy Itching Verified 08/05/23 09:56 Antibiotics) Review of Systems ROS Statement: Those systems with pertinent positive or pertinent negative responses have been documented in the HPI. ROS Other: All systems not noted in ROS Statement are negative. Past Medical History Past Medical History: No Reported History Additional Past Medical History / Comment(s): labs: A+, abs neg, Rub Imm, RPR Nr, Hep B neg, HIV NR, GBS neg. normal 1hr GTT. History of Any Multi-Drug Resistant Organisms: None Reported Past Surgical History: No Surgical Hx Reported Past Anesthesia/Blood Transfusion Reactions: No Reported Reaction Past Psychological History: No Psychological Hx Reported Smoking Status: Never smoker Past Alcohol Use History: None Reported Past Drug Use History: None Reported - Past Family History Mother Family Medical History: No Reported History General Exam Limitations: no limitations General appearance: alert, in no apparent distress Head exam: Present: atraumatic, normocephalic, normal inspection Eye exam: Present: normal appearance, PERRL, EOMI. Absent: scleral icterus, conjunctival injection, periorbital swelling ENT exam: Present: normal exam, normal oropharynx, mucous membranes moist Neck exam: Present: normal inspection, full ROM. Absent: tenderness, meningismus, lymphadenopathy Respiratory exam: Present: normal lung sounds bilaterally. Absent: respiratory distress, wheezes, rales, rhonchi, stridor Cardiovascular Exam: Present: regular rate, normal rhythm, normal heart sounds. Absent: systolic murmur, diastolic murmur, rubs, gallop, clicks GI/Abdominal exam: Present: soft, normal bowel sounds. Absent: distended, tenderness, guarding, rebound, rigid Neurological exam: Present: alert Course Vital Signs 08/05/23 08/05/23 08/05/23 09:54 10:00 11:29 Temperature 98.8 F Pulse Rate 114 H 102 H Respiratory 18 18 18 Rate Blood Pressure 105/68 110/85 O2 Sat by Pulse 95 95 Oximetry Medical Decision Making - Medical Decision Making Was pt. sent in by a medical professional or institution (YARY Barber, RENTAL COORDINATOR, urgent care, hospital, or shelter...) When possible be specific @ -No Did you speak to anyone other than the patient for history (EMS, parent, family, police, friend...)? What history was obtained from this source @ -No Did you review nursing and triage notes (agree or disagree)? Why? @ -I reviewed and agree with nursing and triage notes Were old charts reviewed (outside hosp., previous admission, EMS record, old EKG, old radiological studies, urgent care reports/EKG's, shelter records)? Report findings @ -No old charts were reviewed Differential Diagnosis (chest pain, altered mental status, abdominal pain women, abdominal pain men, vaginal bleeding, weakness, fever, dyspnea, syncope, headache, dizziness, GI bleed, back pain, seizure, CVA, palpatations, mental health, musculoskeletal)? @ -[COVID 19, RSV, influenza, pneumonia, acute bronchitis, URI, this list is not all inclusive EKG interpreted by me (3pts min.). @ -None X-rays interpreted by me (1pt min.). @ -None done CT interpreted by me (1pt min.). @ -None done U/S interpreted by me (1pt. min.). @ -None done What testing was considered but not performed or refused? (CT, X-rays, U/S, labs)? Why? @ -None What meds were considered but not given or refused? Why? @ -None Did you discuss the management of the patient with other professionals (professionals i.e. , PA, RENTAL COORDINATOR, lab, RT, psych nurse, oncology social work, assembler latches and springs, teacher, special assets officer, mental health case manager)? Give summary @ -No Was smoking cessation discussed for >3mins.? @ -No Was critical care preformed (if so, how long)? @ -No Were there social determinants of health that impacted care today? How? (Homelessness, low income, unemployed, alcoholism, drug addiction, transportation, low edu. Level, literacy, decrease access to med. care, [place] [facility], rehab)? @ -No Was there de-escalation of care discussed even if they declined (Discuss DNR or withdrawal of care, Hospice)? DNR status @ -No What co-morbidities impacted this encounter? (DM, HTN, Smoking, COPD, CAD, Cancer, CVA, ARF, Chemo, Hep., AIDS, mental health diagnosis, sleep apnea, morbid obesity)? @ -None Was patient admitted / discharged? Hospital course, mention meds given and route, prescriptions, significant lab abnormalities, going to OR and other pertinent info. @ -[Discharge patient has coarse sure sounds, viral swab was negative patient treated for tracheobronchitis return parameters discussed. Undiagnosed new problem with uncertain prognosis? @ -No Drug Therapy requiring intensive monitoring for toxicity (Heparin, Nitro, Insulin, Cardizem)? @ -No Were any procedures done? @ -No Diagnosis/symptom? @ -[Tracheobronchitis Acute, or Chronic, or Acute on Chronic? @ -Acute Uncomplicated (without systemic symptoms) or Complicated (systemic symptoms)? @ -[Uncomplicated Side effects of treatment? @ -No Exacerbation, Progression, or Severe Exacerbation? @ -No Poses a threat to life or bodily function? How? (Chest pain, [place], [place], pneumonia, PE, COPD, DKA, ARF, appy, cholecystitis, CVA, Diverticulitis, Homicidal, Suicidal, threat to staff... and all critical care pts) @ -No - Lab Data Lab Results 08/05/23 Range/Units 10:02 Influenza Type A (PCR) Not Detected (Not Detectd) Influenza Type B (PCR) Not Detected (Not Detectd) RSV (PCR) Not Detected (Not Detectd) SARS-CoV-2 (PCR) Not Detected (Not Detectd) Disposition Clinical Impression: Tracheobronchitis Disposition: HOME SELF-CARE Condition: Stable Instructions (If sedation given, give patient instructions): Upper Respiratory Infection (ED) Additional Instructions: Please return to the Emergency Department if symptoms worsen or any other concerns. Prescriptions: Amoxic-Pot Clav 875-125Mg [Augmentin 875-125] 1 tab PO Q12HR #20 tab Is patient prescribed a controlled substance at d/c from ED?: No Referrals: None,Stated [REFERRING] - 1-2 days Time of Disposition: 10:57
[2023-08-05 10:41] VITALS: RESP 18; TEMP 98.8
[2023-08-05 11:51] VITALS: BP 110/85; PULSE 102
== END 2023-08-05 11:30 | disposition home or self-care (01) ==
LOC: EC 09:47
DX: J40 Bronchitis, not specified as acute or chronic (principal); Z88.2 Allergy status to sulfonamides; Z20.822 Contact with and (suspected) exposure to COVID-19
CPT/HCPCS: 87636; 99284

== ENCOUNTER 2023-10-02 06:04 | Inpatient (IN) | payer BC ==
[2023-09-30 08:40] VITALS: BMI 32.9
[2023-10-02] MEDS ORDERED: miSOPROStoL 200 MCG TAB PO PRN (06:34)
[2023-10-02] MEDS ORDERED: OXYTOCIN 10 UNIT/ML 1 ML VIAL IM PRN (06:34)
[2023-10-02] MEDS ORDERED: METHYLERGONOVINE 0.2 MG/ML 1 ML AMP IM PRN (06:34)
[2023-10-02] MEDS ORDERED: TRANEXAMIC 1,000 MG/100ML-NACL 1,000 MG in EMPTY BAG 1 BAG IV PRN (06:34)
[2023-10-02] MEDS ORDERED: CARBOPROST TROMETHAMINE 250 MCG/ML 1 ML AMP IM PRN (06:34)
[2023-10-02 07:20] LABS: Basophils % (A) 0 %; Eosinophils # (A) 0.1 k/uL (0-0.7); Eosinophils % (A) 1 %; HCT 35.4 % (34.0-46.0); Lymphocytes # (A) 1.9 k/uL (1.0-4.8); Lymphocytes % (A) 18 %; MCH 30.3 pg (25.0-35.0); Mean Platelet Volume 7.8; Monocytes # (A) 0.4 k/uL (0-1.0); Monocytes % (A) 4 %; Neutrophils # (A) 7.6 k/uL (1.3-7.7); Neutrophils % (A) 75 %; Platelet Count 263 k/uL (150-450); Poikilocytosis Slight; RBC 3.98 m/uL (3.80-5.40); WBC 10.2 k/uL (3.8-10.6)
[2023-10-02] MEDS: CITRIC ACID-SODIUM CITRATE 15 ML CUP PO ONE (07:23)
[2023-10-02] MEDS: LACTATED RINGERS 1,000 ML IV SCH ×2 (07:29→14:33)
[2023-10-02] MEDS ORDERED: OXYTOCIN 30 UNITS/500 ML NS BAG IV ONE (08:15)
[2023-10-02] MEDS ORDERED: MORPHINE SULFATE (PF) 0.3 MG/0.3 ML SYR ONE (08:15)
[2023-10-02] MEDS ORDERED: fentaNYL (PF) 50 MCG/ML 2 ML AMP ONE (08:15)
[2023-10-02] MEDS ORDERED: KETOROLAC 30 MG/ML 1 ML VIAL ONE (08:15)
[2023-10-02] MEDS ORDERED: ONDANSETRON 4 MG/2 ML VIAL ONE (08:15)
[2023-10-02] MEDS ORDERED: PHENYLEPHRINE 10 MG/ML VIAL ONE (08:15)
[2023-10-02 08:46] LABS: Amphetamine Screen,Urine Not Detected (NotDetected); Barbiturate Screen,Urine Not Detected (NotDetected); Benzodiazepines Screen,Urine Not Detected (NotDetected); Cocaine Screen,Urine Not Detected (NotDetected); Methadone Screen, Urine Not Detected (NotDetected); Opiate Screen,Urine Not Detected (NotDetected); Oxycodone Screen, Urine Not Detected (NotDetected); Phencyclidine Screen,Urine Not Detected (NotDetected); Tricyclic Antidepressant,Urine Not Detected (NotDetected); Urn Cannabinoid Scrn Not Detected (NotDetected)
[2023-10-02] MEDS ORDERED: diphenhydrAMINE 25 MG CAP PO PRN (09:24)
[2023-10-02] MEDS ORDERED: NALOXONE 0.4 MG/ML 1 ML VIAL IV PRN (09:24)
[2023-10-02] MEDS ORDERED: ONDANSETRON 4 MG/2 ML VIAL IVP PRN (09:24)
[2023-10-02] MEDS ORDERED: diphenhydrAMINE 50 MG CAP PO PRN (09:24)
[2023-10-02] MEDS ORDERED: METOCLOPRAMIDE 5 MG/ML 2 ML VIAL IVP PRN (09:24)
[2023-10-02] MEDS ORDERED: KETOROLAC 15 MG/ML 1 ML VIAL IVP PRN (09:24)
[2023-10-02] MEDS ORDERED: diphenhydrAMINE 50 MG/ML 1 ML VIAL IVP PRN ×2 (09:24)
[2023-10-02] MEDS ORDERED: SIMETHICONE 80 MG CHEWABLE PO PRN (09:24)
[2023-10-02] MEDS ORDERED: LANOLIN CREAM 1 GM TUBE TOPICAL PRN (09:24)
[2023-10-02] MEDS ORDERED: ZOLPIDEM 5 MG TAB PO PRN (09:24)
[2023-10-02] MEDS ORDERED: OXYTOCIN 30 UNITS/500 ML NS 30 UNIT in SALINE 1 500ML.BAG IV SCH (09:30)
--- NOTE | 2023-10-02 09:30 | P.HPOB ---
History of Present Illness H&P Date: 10/02/23 Chief Complaint: 39-1/7 weeks, previous section, requesting repeat The patient is a 38-year-old 3 para 1-0-1-1 admitted at 39-1/7 weeks as established by a 24-week ultrasound. She is admitted with a history of a previous section for a repeat section by her request. Her was uncomplicated though she does not fall into the category of advanced maternal age. She did not have any trisomy testing as she also had late presentation for care. On labor and delivery, all signs are reassuring with a category 1 heart rate tracing. Group B strep status is negative. Obstetrical history: 3 para 1-0-1-1 with 1 term section. Current statistics are listed in history of present illness. EDC of 10/08/2023 was established by 24-week ultrasound. Laboratory workup demonstrates a blood type of A+ with a negative antibody screen. Rubella status is immune. The remainder of the laboratory workup was within normal limits. Second trimester Glucola was normal. Group B strep status is negative. Gynecologic history: Unremarkable with no history of any infections to include STDs. Review of Systems Review of systems is confined to history of present illness. Past Medical History Past Medical History: No Reported History Additional Past Medical History / Comment(s): labs: A+, abs neg, Rub Imm, RPR Nr, Hep B neg, HIV NR, GBS neg. normal 1hr GTT. History of Any Multi-Drug Resistant Organisms: None Reported Past Surgical History: Section Past Anesthesia/Blood Transfusion Reactions: No Reported Reaction Past Psychological History: No Psychological Hx Reported Smoking Status: Never smoker Past Alcohol Use History: None Reported Past Drug Use History: None Reported - Past Family History Mother Family Medical History: No Reported History Medications and Allergies Home Medications Medication Instructions Recorded Confirmed Type Vit No.179/Iron/Folic 1 each PO DAILY 02/11/22 10/02/23 History [ Tablet] Allergies Allergy/AdvReac Type Severity Reaction Status Date / Time Sulfa (Sulfonamide Allergy Itching Verified 10/02/23 06:33 Antibiotics) Exam Vital Signs Temp Pulse Resp BP Pulse Ox 10/02/23 06:33 97.4 F L 115 H 16 134/80 98 Intake and Output 10/01/23 10/02/23 10/02/23 22:59 06:59 14:59 Other: Weight 81.647 kg In general, this is a well-developed, well-nourished white female in no acute distress. Her heart has a regular rhythm and rate without murmur. Her lungs are clear to auscultation bilaterally in all noble. Her abdomen is gravid, nondistended, has normal active bowel sounds, soft, nontender, and without any palpable masses aside from the uterine fundus. Her extremities are without any cyanosis, clubbing, or significant edema and are nontender to palpation bilaterally. Digital cervical examination is deferred. Results Result Diagrams: 10/02/23 06:47 Abnormal Lab Results - Last 24 Hours (Table) 10/02/23 Range/Units 06:47 RDW 16.0 H (11.5-15.5) % Assessment and Plan (1) Previous section Current Visit: Yes Status: Acute Code(s): Z98.891 - HISTORY OF UTERINE SCAR FROM PREVIOUS SURGERY SNOMED Code(s): 448541384 (2) Term Current Visit: Yes Status: Acute Code(s): Z34.90 - ENCNTR FOR SUPRVSN OF NORMAL , UNSP, UNSP TRIMESTER SNOMED Code(s): 23694528 Plan: The patient has requested repeat low-transverse section. She will be taken to the operating room shortly to undergo the procedure. The risks and complications have been thoroughly discussed and she has understood and agreed to proceed.
--- NOTE | 2023-10-02 09:35 | P.OP ---
Date of Procedure: 10/02/23 Preoperative Diagnosis: #1. 39-1/7 weeks intrauterine , previous section, requesting repeat #2. Advanced maternal age Postoperative Diagnosis: Same Procedure(s) Performed: #1. Repeat low-transverse section Anesthesia: spinal Surgeon: Manuel Waddell Waiter #1: Kim Dejesus Estimated Blood Loss (ml): 350 IV fluids (ml): 1,500 Urine output (ml): 100 Pathology: none sent Condition: stable Disposition: floor Operative Findings: The patient was taken to the operating room where she was delivered by repeat low-transverse section of a viable 7 pound 10 ounce baby boy with Apgars of 9 at 1 minute and 9 at 5 minutes in the occiput anterior position. There was a nuchal cord x 2 noted which was reduced prior to delivery of the body. The uterus, tubes, and ovaries were entirely normal to inspection with the exception of the lower uterine segment which was very thin upon entry into the abdomen. It was rebuilt at closure to attempt to reinforce the thickness. The placenta was delivered manually, intact, and grossly normal with a grossly normal three-vessel cord. Description of Procedure: Was prepped and draped in usual fashion after spinal anesthesia was administered by the anesthesiologist. A Pfannenstiel incision was made through pre-existing scar and extended into the abdominal cavity without difficulty. There was some moderate scarring at the level of the rectus muscles. The bladder peritoneum was relatively high on the otherwise very thin lower uterine segment and was therefore elevated, incised, and reflected distally. A 2 cm incision was made in the transverse plane of the lower uterine segment down to the uterus at which time clear fluid was noted. The incision was extended in both directions using the bandage scissors. The head was delivered up and through the incision where the nose and mouth were thoroughly suctioned. There was a nuchal cord x 2 which was reduced on the field at that time. The remainder of the was delivered onto the field where the cord was doubly clamped, cut, and the infant passed for resuscitative measures with weight and Apgars as noted above. Segment of cord was doubly clamped, cut, and set aside for cord gases become necessary. The placenta was delivered manually and intact as noted above. The uterus was exteriorized and the anterior cavity of the uterus swept of any remaining placental or membranous fragments. The margins of the uterine incision were grasped with Smith clamps and the incision closed in 2 layers. The first layer was a running locking stitch of 0 chromic catgut from margin to margin followed by a running imbricating layer of 0 chromic catgut which was used to attempt to significantly reinforce and thickened the lower uterine segment. The posterior cul-de-sac was suctioned with a guard followed by laparotomy sponge. The uterine ovarian findings were normal as noted above. The uterus was replaced within the abdominal cavity and the gutters swept of any remaining blood, fluid, or clot. The uterine incision was reexamined and 1 point of bleeding at the left midportion was made hemostatic with a single [id number] stitch of 0 chromic catgut. Any small points of peritoneal bleeding were made hemostatic with the Bovie. Once hemostasis was established, the parietal peritoneum was loosely reapproximated and the layer of muscles examined and made hemostatic with the Bovie. The fascia was closed with 2 running stitches of 0 Vicryl proceeding from the lateral margins to the midpoint. The subcutaneous tissues were irrigated, made hemostatic with the Bovie, and reapproximated with a running stitch of 3-0 plain catgut. The skin was reapproximated mated with a running subcuticular stitch of 4-0 Vicryl followed by half-inch Steri-Strips placed with Mastisol. Estimated blood loss for the case was approximately 350 cc. There were no complications. All sponge, instrument, and needle counts were correct. The patient tolerated the procedure well and proceeded to the recovery room in stable condition. Both mother and are resting comfortably in recovery.
[2023-10-02] MEDS: ACETAMINOPHEN TAB 500 MG TAB PO SCH (11:26)
[2023-10-02] MEDS: IBUPROFEN 600 MG TAB PO SCH (14:32)
[2023-10-02] MEDS: SENNOSIDES-DOCUSATE SODIUM 1 EACH TAB PO SCH (20:04)
[2023-10-03 06:19] LABS: Anisocytosis Slight; Basophils % (A) 0 %; Eosinophils # (A) 0.2 k/uL (0-0.7); Eosinophils % (A) 2 %; HCT 30.8 % (34.0-46.0); HGB 10.6 gm/dL (11.4-16.0); Lymphocytes # (A) 1.4 k/uL (1.0-4.8); Lymphocytes % (A) 12 %; MCHC 34.5 g/dL (31.0-37.0); MCV 89.8 fL (80.0-100.0); Mean Platelet Volume 7.9; Monocytes # (A) 0.7 k/uL (0-1.0); Monocytes % (A) 6 %; Neutrophils % (A) 78 %; Platelet Count 232 k/uL (150-450); Poikilocytosis Slight; RBC 3.42 m/uL (3.80-5.40); RDW 16.5 % (11.5-15.5); WBC 11.5 k/uL (3.8-10.6)
--- NOTE | 2023-10-03 09:06 | P.PNOBGPC ---
Subjective - Subjective Principal diagnosis: Term , repeat Interval history: Doing very well Patient reports: Reports appetite normal, Reports voiding normally, Reports pain well controlled, Reports ambulating normally, Denies nauseated : doing well, bottle feeding Objective - Vital Signs Latest vital signs: Vital Signs Temp Pulse Resp BP Pulse Ox 10/03/23 03:53 98.3 F 90 16 101/67 97 10/02/23 20:05 97.7 F 99 16 112/73 97 10/02/23 15:42 97.7 F 89 18 113/73 98 10/02/23 11:15 85 16 99/55 100 10/02/23 11:00 98 17 103/59 100 10/02/23 10:45 90 18 108/63 100 10/02/23 10:30 76 18 107/71 100 10/02/23 10:15 80 18 105/59 99 10/02/23 10:00 86 18 99/57 97 10/02/23 09:45 96.3 F L 86 18 102/53 98 10/02/23 09:30 92 18 115/54 98 10/02/23 09:15 96.6 F L 91 18 112/72 98 Intake and Output 10/02/23 10/03/23 10/03/23 22:59 06:59 14:59 Intake Total 600 Output Total 950 Balance -350 Intake: Oral 600 Output: Urine 950 Uretheral (Ramírez) 400 Other: Voiding Method Indwelling Catheter # Voids 1 1 - Exam Extremities: Present: edema Abdomen: Present: normal appearance, soft (2+). Absent: distention, tenderness Incision: Present: normal, dry, intact. Absent: erythematous Uterus: Present: normal, firm. Absent: tenderness - Labs Labs: Abnormal Lab Results - Last 24 Hours (Table) 10/03/23 Range/Units 05:50 WBC 11.5 H (3.8-10.6) k/uL RBC 3.42 L (3.80-5.40) m/uL Hgb 10.6 L (11.4-16.0) gm/dL Hct 30.8 L (34.0-46.0) % RDW 16.5 H (11.5-15.5) % Neutrophils # 9.0 H (1.3-7.7) k/uL Assessment and Plan (1) Advanced maternal age (AMA) in Current Visit: Yes Status: Acute Code(s): [id number] - SNOMED Code(s): 664480127 (2) Nuchal cord, delivered, current hospitalization Current Visit: Yes Status: Acute Code(s): O69.81X0 - LABOR AND DEL COMP BY CORD AROUND NECK, W/O COMPRSN, UNSP SNOMED Code(s): 199920189 (3) Previous section Current Visit: Yes Status: Acute Code(s): Z98.891 - HISTORY OF UTERINE SCAR FROM PREVIOUS SURGERY SNOMED Code(s): 738610011 (4) S/P section Current Visit: Yes Status: Acute Code(s): Z98.891 - HISTORY OF UTERINE SCAR FROM PREVIOUS SURGERY SNOMED Code(s): 971835999 Plan: Postop day 1 status post repeat scheduled repeat low transverse section. Recovering well. Routine care.
--- NOTE | 2023-10-03 10:28 | P.PN ---
Progress Note - Text Progress Note Date: 10/03/23 (5384) Anesthesia Postop day 1 Subjective: Status Post section with Duramorph. Patient seen and examined. Doing well without complaint. VAS 2 out of 10. No nausea or vomiting. Mild pruritus tolerable.. Denies fever. Gross lower extremity strength intact. Without apparent anesthetic complications. Objective: Vital signs reviewed Heart: Regular Rate Lungs: Good chest excursion Abdomen: Appears nondistended Assessment: Status post section with Duramorph postop day 1 Plan: 1. Continue current care with your medical management. Anticipated end to the duration of the Duramorph around surgery time today. You may see increased pain needs around this time. 2. This note was dictated using [employer] software. Please be advised there is a potential for misspellings or errors in welder production line gas.
--- NOTE | 2023-10-04 10:34 | P.DS ---
Providers Date of admission: 10/02/23 06:04 Expected date of discharge: 10/04/23 Attending physician: Manuel Waddell Primary care physician: Jd Millard - Discharge Diagnosis(es) (1) Advanced maternal age (AMA) in Current Visit: Yes Status: Acute (2) Nuchal cord, delivered, current hospitalization Current Visit: Yes Status: Acute (3) Previous section Current Visit: Yes Status: Acute (4) S/P section Current Visit: Yes Status: Acute Hospital Course: This is a 38-year-old 2 now para 2 woman who is admitted at 39 weeks gestation for planned repeat low transverse section. Please see the admission history and physical for details. Following admission she was taken to the operating room where she underwent an unremarkable repeat low transverse section. Findings at the time of surgery were significant for a 7 lbs. 10 oz. male with Apgars of 9 at 1 minute and 9 at 5 minutes. Please see the operative report for details. There was a nuchal cord 2. The patient's postoperative course was unremarkable. By postoperative day #1 she was ambulating and voiding without difficulty and her pain was well-controlled with oral pain medications. She was tolerating a general diet. Her postoperative labs were within normal limits. By postoperative day #2 she continued to do wel l. Her incision appeared well healing and her lochia was minimal. circumcision was performed. Patient was deemed medically stable for discharge home and was discharged in good condition with routine instructions for postoperative care and follow-up. Procedures: Repeat low transverse section Patient Condition at Discharge: Good Plan - Discharge Summary Discharge Rx Participant: Yes New Discharge Prescriptions: New Acetaminophen Tab [Tylenol] 1,000 mg PO Q6H PRN #30 tab PRN Reason: Pain Ibuprofen [Motrin] 600 mg PO Q6H PRN #30 tab PRN Reason: Pain Sennosides-Docusate Sodium [Senokot-S] 2 each PO BID@0800,2000 tab Continue Vit No.179/Iron/Folic [ Tablet] 1 each PO DAILY Discharge Medication List Vit No.179/Iron/Folic [ Tablet] 1 each PO DAILY 02/11/22 [History] Acetaminophen Tab [Tylenol] 1,000 mg PO Q6H PRN #30 tab 10/04/23 [Rx] Ibuprofen [Motrin] 600 mg PO Q6H PRN #30 tab 10/04/23 [Rx] Sennosides-Docusate Sodium [Senokot-S] 2 each PO BID@0800,1999 tab 10/04/23 [Rx] Follow up Appointment(s)/Referral(s): Manuel Waddell MD [STAFF PHYSICIAN] - 2 Weeks Activity/Diet/Wound Care/Special Instructions: Follow-up in 2 weeks after surgery in the office. Call the office with any concerning signs or symptoms including fever greater than 100.5, severe abdominal pain, heavy vaginal bleeding, signs of wound infection, increased swelling or redness of the lower extremities, signs of depression. No driving for 2 weeks after surgery. No heavy lifting or vigorous activity until reevaluated in the office. No intercourse for 6 weeks after delivery. Discharge Disposition: HOME SELF-CARE
[2023-10-04 15:58] VITALS: BP 115/73; PULSE 98; RESP 16; TEMP 98.5
== END 2023-10-04 18:32 | disposition home or self-care (01) | DRG 788 ==
LOC: 4FBP 06:04
PROVIDERS: ADMIT Obstetrics & Gynecology; ATTEND Obstetrics & Gynecology
PROC: 10D00Z1 Extraction of Products of Conception, Low, Open Approach (ICD-10-PCS; principal; 2023-10-02 08:00)
DX: O34.211 Maternal care for low transverse scar from previous cesarean delivery (principal); O34.593 Maternal care for other abnormalities of gravid uterus, third trimester; O69.81X0 Labor and delivery complicated by cord around neck, without compression, not applicable or unspecified; O99.73 Diseases of the skin and subcutaneous tissue complicating the puerperium; L29.9 Pruritus, unspecified; Z88.2 Allergy status to sulfonamides; Z3A.39 39 weeks gestation of pregnancy; Z37.0 Single live birth
CPT/HCPCS: 80306; 85025; 86850; 86900; 86901